=== PATIENT | male | born 1985 | race Caucasian/White ===

== ENCOUNTER 2017-03-27 18:43 | Emergency (ER) | payer MEDICAID ==
--- NOTE | 2017-03-27 18:43 | EDPHY ---
H & P Constitutional: Initial Vital Signs Temperature (C) 36.7 C 03/27/17 18:50 Heart Rate 75 03/27/17 18:50 Respiratory Rate 16 03/27/17 18:50 Blood Pressure 133/74 H 03/27/17 18:50 O2 Sat (%) 96 03/27/17 18:50 O2 Delivery Mode Room Air Allergies/Adverse Reactions: No Known Allergies Allergy (Unverified 03/27/17 18:49) Home Medications: Medication Instructions Recorded Cephalexin [Keflex (RX)] 500 mg PO TID #30 cap 03/27/17 Hydrocodone/APAP 5/325 [Tilden 1 - 2 each PO Q4-6PRN PRN #20 tab 03/27/17 5/325] Medical Decision Making ED Course/Re-evaluation: CHIEF COMPLAINT: Tooth pain HISTORY OF PRESENT ILLNESS: 32-year-old homeless male with left lower and upper tooth pain. He has had an abscess in that area in the past. The pain started couple days ago. It is also inflamed hurts to open close his jaw. He denies systemic illness. REVIEW OF SYSTEMS: A 10 point review of systems was performed and is negative with the exception of the elements mentioned in the history of present illness. PHYSICAL EXAM: HR, BP, O2 Sat, RR. Temp noted General Appearance: Alert, well hydrated, appropriate, and non-toxic appearing. Head: Atraumatic without scalp tenderness or obvious injury Eyes: Pupils equal, round, reactive to light and accommodation, EOMI, no trauma , no injection. Ears: Clear bilaterally, no perforation, normal landmarks Nose: Atraumatic, no rhinorrhea, clear. Throat: Gingival erythema but no obvious abscess formation of the back lower left molar. There is no erythema or exudates, no lesions, normal tonsils, mucus membranes moist. Neck: Supple, 2+ carotid upstroke, nontender, no lymphadenopathy. Respiratory: No retractions, no distress, no wheezes, and no accessory muscle use. Lungs are clear to auscultation bilaterally. Cardiovascular: Regular rate and rhythm, no murmurs, rubs, or gallops. Bilateral carotid, radial, dorsalis pedis, and posterior tibial pulses intact. Good capillary refill all extremities. Gastrointestinal: Abdomen is soft, nontender, non-distended, no masses, no rebound, no guarding, no peritoneal signs. Musculoskeletal: Normal active ROM of all extremities, atraumatic. Neurological: Alert, appropriate, and interactive. The patient has normal DTRs and non-focal cranial nerves, motor, sensory, and cerebellar exam. Skin: No rashes, good turgor, no nodules on palpation. Past medical history: Noncontributory Past surgical history: Noncontributory Family history: Noncontributory Social history: Homeless, unemployed, uses drugs alcohol and smokes cigarettes DIFFERENTIAL DIAGNOSIS: Includes but is not limited to dental abscess, gingivitis, cavity, care ease, avulse tooth MEDICAL DECISION MAKING: This patient has some gingival erythema prior history of infection in that area. I will give him Keflex and some pain meds and he will follow up with dental late tomorrow. Departure - Departure Disposition: Home, Routine, Self-Care Clinical Impression: Gingivitis Condition: Good Instructions: Gingivitis (ED) Prescriptions: Cephalexin [Keflex (RX)] 500 mg PO TID #30 cap Hydrocodone/APAP 5/325 [Tilden 5/325] 1 - 2 each PO Q4-6PRN PRN #20 tab PRN Reason: Pain, Moderate
[2017-03-27 18:52] VITALS: BP 133/74; PULSE 75; RESP 16; TEMP 98.1; O2SAT 96
== END 2017-03-27 19:35 | disposition home or self-care (01) ==
DX: K05.10 Chronic gingivitis, plaque induced (principal); F17.210 Nicotine dependence, cigarettes, uncomplicated